=== PATIENT | male | born 1965 | race Caucasian/White ===

== ENCOUNTER 2017-11-30 20:05 | Emergency (ER) | payer SELFPAY, OTHER ==
[2017-11-30] MEDS: HYDROCODONE/APAP (5/325) TAB PO (23:11)
== END 2017-12-01 02:13 | disposition home or self-care (01) ==
LOC: FTE 12-01 02:13
DX: M25.561 Pain in right knee (principal); M25.511 Pain in right shoulder
CPT/HCPCS: 73030; 73030-RT; 73562; 99284-25

== ENCOUNTER 2017-12-01 16:54 | Emergency (ER) | payer SELFPAY | END 2017-12-01 19:08 | disposition left against medical advice (07) | LOC: E/R 16:54 | DX: Z53.21 Procedure and treatment not carried out due to patient leaving prior to being seen by health care provider (principal) ==